=== PATIENT | male | born 1985 | race Caucasian/White ===

== ENCOUNTER 2017-11-16 12:37 | Emergency (ER) | payer OTHER ==
[~2017-11-16] VITALS: Ht 182.9 cm; Wt 121.2 kg
[2017-11-16 12:39] VITALS: BP 148/84
[2017-11-16] MEDS ORDERED: OMEP20TA62 PO (13:57)
[2017-11-16] MEDS ORDERED: KETOROLAC 30 MG/1 ML IM ONE (14:00)
[2017-11-16] MEDS ORDERED: KETOROLAC 30 MG/1 ML ONE (14:05)
== END 2017-11-16 14:26 | disposition home or self-care (01) ==
LOC: ED 14:20
DX: S43.102A Unspecified dislocation of left acromioclavicular joint, initial encounter (principal); K21.9 Gastro-esophageal reflux disease without esophagitis; W19.XXXA Unspecified fall, initial encounter; Y93.89 Activity, other specified; Y92.89 Other specified places as the place of occurrence of the external cause; Y99.8 Other external cause status
CPT/HCPCS: 29105; 73000; 73030; 96372; 99284; J1885